=== PATIENT | male | born 1960 | race Caucasian/White ===

== ENCOUNTER 2017-06-19 16:35 | Emergency (ER) | payer BC ==
[2017-06-19 16:41] VITALS: BP 118/70; PULSE 92; TEMP 98; BMI 31.0
--- NOTE | 2017-06-19 17:03 | PDOC ---
History of Present Illness - General Chief Complaint: Pain Stated Complaint: LEG INJURY Time Seen by Provider: 06/19/17 16:47 History Source: Patient Exam Limitations: No Limitations - History of Present Illness Initial Comments: 06/19/17 17:15 Patient is a 57 y/o male who presents to the ED c/o right leg pain. Pt. states he felt a pop this morning when he was stretching to push a small cart up a hill. He felt his leg twist underneath him. He states that immediately after the pop, his calf swelled. States that he has pain when he walks. Denies weakness, tingling, numbness. 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 Denies recent travel. Past History - Travel Traveled outside of the country in the last 30 days: Yes Close contact w/someone who was outside of country & ill: No - Past Medical History Allergies/Adverse Reactions: Allergies Allergy/AdvReac Type Severity Reaction Status Date / Time No Known Allergies Allergy Verified 06/19/17 16:41 Home Medications: Ambulatory Orders NK [No Known Home Medication] 06/19/17 Diabetes: Yes - Surgical History Cholecystectomy: Yes - Psycho/Social/Smoking Cessation Hx Suicidal Ideation: No Smoking History: Never smoked Information on smoking cessation initiated: No Review of Systems - Review of Systems Constitutional: No: Chills, Fever, Malaise, Weakness Musculoskeletal: Yes: Joint Swelling (R knee), Muscle Pain (right lower leg) Integumentary: No: Bruising, Erythema, Rash Neurological: No: Numbness, Paresthesia, Tingling, Weakness All Other Systems: Reviewed and Negative *Physical Exam - Vital Signs Last Vital Signs Temp Pulse Resp BP Pulse Ox 98 F 92 H 18 118/70 98 06/19/17 16:38 06/19/17 16:38 06/19/17 16:38 06/19/17 16:38 06/19/17 16:38 - Physical Exam General Appearance: Yes: Nourished, Appropriately Dressed. No: Apparent Distress Vascular Pulses: Dorsalis-Pedis (R): 2+, Doralis-Pedis (L): 2+ Extremity: positive: Normal Capillary Refill, Normal Range of Motion, Tender ( TTP of the R calf. (+) varus stress.), Swelling (R calf). 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 is a 57 y/o male who presents for R leg pain. His knee exam does show some laxity with a varus draw. However, given the acuity of the swelling of the calf , will r/o DVT as well. 1. X-ray, Venous Duplex 2. Ibuprofen 3. Re-evaluate 06/19/17 17:56 No DVT is identified on ultrasound. 06/19/17 18:39 Wet read of x-ray is negative for fracture. Working differential diagnosis includes knee sprain, ligament tear. Will discharge home at this time with sean wrap and crutches. Will give ortho follow up. Pt understands all discharge instructions and all questions were answered at this time. *DC/Admit/Observation/Transfer Diagnosis at time of Disposition: Knee sprain Qualifiers: Encounter type: initial encounter Involved ligament of knee: unspecified ligament Laterality: right Qualified Code(s): S83.91XA - Sprain of unspecified site of right knee, initial encounter - Discharge Dispostion Disposition: HOME Condition at time of disposition: Improved Admit: No - Referrals Referrals: Sree Forman MD [Primary Care Provider] - Sree Tejada MD [Staff Physician] - - Patient Instructions Printed Discharge Instructions: DI for Knee Sprain Additional Instructions: Your x-rays and ultrasound were negative today. You have a knee sprain. Take ibuprofen 800mg three times a day not to exceed 3,000mg. Elevate and ice the R knee. Follow up with orthopedics within one week. Return to the ED if you have worsening pain, numbness or tingling, or any changes in your symptoms.
[2017-06-19] MEDS ORDERED: IBUPROFEN 600 MG TABLET (FP) PO ONE ×2 (17:12→17:17)
== END 2017-06-19 19:28 | disposition home or self-care (01) ==
LOC: JERFT 16:35
DX: S83.91XA Sprain of unspecified site of right knee, initial encounter (principal); X50.9XXA Other and unspecified overexertion or strenuous movements or postures, initial encounter; Y93.89 Activity, other specified; Y92.89 Other specified places as the place of occurrence of the external cause
CPT/HCPCS: 73562-TC-RT; 73590-TC-RT; 93971-TC; 99281-25

== ENCOUNTER 2021-07-01 11:12 | Emergency (ER) | payer BC, OTHER ==
[2021-07-01 11:36] VITALS: TEMP 98; BMI 32.8
[2021-07-01] MEDS ORDERED: SODIUM CHLORIDE 1,000 ML IV STA (12:44)
[2021-07-01] MEDS ORDERED: KETOROLAC TROMETHAMINE 30 MG/1 ML VIAL IVPUSH ONE (12:44)
[2021-07-01] MEDS ORDERED: ONDANSETRON 4 MG/2 ML VIAL IVPUSH ONE (12:45)
[2021-07-01] MEDS ORDERED: KETOROLAC TROMETHAMINE 30 MG/1 ML VIAL ONE (12:49)
[2021-07-01] MEDS ORDERED: ONDANSETRON 4 MG/2 ML VIAL ONE (12:49)
[2021-07-01 13:12] LABS: BASO % 0.4 % (0-2.0); EOS % 2.6 % (0-4.5); HEMATOCRIT 37.4 % (35.4-49); HEMOGLOBIN 13.2 GM/dL (11.7-16.9); LYMPH % 17.1 % (8-40); MCH 30.3 pg (25.7-33.7); MCHC 35.3 g/dl (32.0-35.9); MEAN CELL VOLUME 85.7 fl (80-96); MEAN PLT VOLUME 7.2 fl (7.5-11.1); MONO % 13.6 % (3.8-10.2); NEUT % 66.3 % (42.8-82.8); PLATELET COUNT 185 10^3/uL (134-434); RBC 4.36 M/mm3 (4.00-5.60); WHITE BLOOD COUNT 6.4 K/mm3 (4.0-10.0)
[2021-07-01 13:28] LABS: CALCIUM 9.7 mg/dL (8.5-10.1)
[2021-07-01 13:29] LABS: ALBUMIN 3.4 g/dl (3.4-5.0); BLOOD UREA NITROGEN 23.4 mg/dL (7-18)
[2021-07-01 13:33] LABS: BILIRUBIN,TOTAL 0.6 mg/dL (0.2-1); TOT PROT 7.5 g/dl (6.4-8.2)
[2021-07-01 13:35] LABS: EPI CELLS 1 /uL (0-25.1); HYALINE CASTS 1 /uL (0-3.1); PH,URINE 5.5 (5.0-8.0); URINE APPEARANCE TURBID; URINE BACTERIA >9,000 /uL (0-1359); URINE BILIRUBIN NEGATIVE (NEGATIVE); URINE COLOR DK YELLOW; URINE GLUCOSE (UA) 3+ (NEGATIVE); URINE KETONE TRACE (NEGATIVE); URINE LEUK ESTERASE 2+ (NEGATIVE); URINE NITRITE NEGATIVE (NEGATIVE); URINE PROTEIN 3+ (NEGATIVE); URINE WBC 5061 /uL (0-25.8)
[2021-07-01 14:20] LABS: URINE RBC 662.7 /uL (0-23.9); YEAST NO SEEN (NEGATIVE)
[2021-07-01] MEDS ORDERED: CEFTRIAXONE 1 GM in DEXTROSE 5%-WATER - 50 ML IVPB ONE (15:28)
[2021-07-01] MEDS ORDERED: CEFTRIAXONE 1 GM/50 ML BAG ONE (15:32)
[2021-07-01 16:26] VITALS: BP 138/72; PULSE 73
== END 2021-07-01 16:26 | disposition home or self-care (01) ==
LOC: JER 11:12
PROC: 3E03329 Introduction of Other Anti-infective into Peripheral Vein, Percutaneous Approach (ICD-10-PCS; principal; 2021-07-01)
PROC: 3E033NZ Introduction of Analgesics, Hypnotics, Sedatives into Peripheral Vein, Percutaneous Approach (ICD-10-PCS; 2021-07-01)
PROC: 3E0337Z Introduction of Electrolytic and Water Balance Substance into Peripheral Vein, Percutaneous Approach (ICD-10-PCS; 2021-07-01)
PROC: 3E0333Z Introduction of Anti-inflammatory into Peripheral Vein, Percutaneous Approach (ICD-10-PCS; 2021-07-01)
DX: N30.01 Acute cystitis with hematuria (principal)
CPT/HCPCS: 36415; 74176-TC; 80053; 81003; 85025; 87086; 87186; 99285-25

== ENCOUNTER 2022-08-27 13:21 | Emergency (ER) | payer OTHER ==
[2022-08-27 14:16] VITALS: BP 141/83; PULSE 74; RESP 18; TEMP 97.8; BMI 33.2
[2022-08-27] MEDS ORDERED: CEPHALEXIN MONOHYDRATE 500 MG CAPSULE (UD) PO ONE (15:43)
[2022-08-27] MEDS ORDERED: DIPHTH,PERTUSS(ACELL),TET 0.5 ML DISP.SYRIN IM ONE ×2 (15:46→15:48)
[2022-08-27] MEDS ORDERED: CEPHALEXIN MONOHYDRATE 500 MG CAPSULE (UD) ONE (15:46)
== END 2022-08-27 16:03 | disposition home or self-care (01) ==
LOC: JERFT 13:21
PROC: 3E0234Z Introduction of Serum, Toxoid and Vaccine into Muscle, Percutaneous Approach (ICD-10-PCS; principal; 2022-08-27)
DX: S61.231A Puncture wound without foreign body of left index finger without damage to nail, initial encounter (principal); W31.2XXA Contact with powered woodworking and forming machines, initial encounter
CPT/HCPCS: 73140-TC-LT-FY; 90715; 99284-25

== ENCOUNTER 2023-01-09 19:45 | Emergency (ER) | payer OTHER ==
[2023-01-09 20:03] VITALS: BMI 33.6
[2023-01-09] MEDS ORDERED: ACETAMINOPHEN 325 MG TABLET (FP) PO ONE (20:13)
[2023-01-09] MEDS ORDERED: ACETAMINOPHEN 325 MG TABLET (FP) ONE (20:33)
[2023-01-09 20:55] LABS: ALBUMIN 3.4 g/dl (3.4-5.0); BILIRUBIN,TOTAL 0.7 mg/dl (0.2-1); CALCIUM 8.7 mg/dl (8.5-10); TOT PROT 7.2 g/dl (6.4-8.2)
[2023-01-09 22:10] LABS: BASO % 0.6 % (0-2.0); EOS % 1.4 % (0-4.5); HEMATOCRIT 35.7 % (35.4-49); HEMOGLOBIN 12.7 GM/dL (11.7-16.9); LYMPH % 11.8 % (8-40); MCH 29.8 pg (25.7-33.7); MCHC 35.6 g/dl (32.0-35.9); MEAN CELL VOLUME 83.6 fl (80-96); MONO % 7.2 % (3.8-10.2); PLATELET COUNT 235 10^3/uL (134-434); RBC 4.26 M/mm3 (4.00-5.60); RDW 13.4 % (11.9-15.9); WHITE BLOOD COUNT 9.4 K/mm3 (4.0-10.0)
[2023-01-10 02:18] VITALS: BP 157/80; PULSE 80; RESP 18; TEMP 98
== END 2023-01-10 02:18 | disposition home or self-care (01) ==
LOC: FER 19:45
DX: N50.811 Right testicular pain (principal); N45.2 Orchitis; N39.0 Urinary tract infection, site not specified; N50.89 Other specified disorders of the male genital organs; Z20.822 Contact with and (suspected) exposure to COVID-19
CPT/HCPCS: 0241U-QW; 36415; 76870-TC; 80053; 81003; 81015; 85025; 87040; 87086; 87186; 99284-25

== ENCOUNTER 2023-01-14 04:12 | Day surgery (SDC) | payer OTHER ==
[2023-01-11 11:14] VITALS: BMI 32.8
[2023-01-14] MEDS ORDERED: BUPIVACAINE HCL/PF 0.25% (2.5MG/ML) 10 ML VIAL ONE (12:58)
[2023-01-14] MEDS ORDERED: PROPOFOL 20 ML ONE (12:58)
[2023-01-14] MEDS ORDERED: DEXAMETHASONE SOD PHOSPHATE 4 MG/1 ML VIAL ONE (12:59)
[2023-01-14] MEDS ORDERED: ONDANSETRON 4 MG/2 ML VIAL ONE (12:59)
[2023-01-14] MEDS ORDERED: LIDOCAINE HCL/PF 2% SDV 5ML VIAL ONE (13:01)
[2023-01-14] MEDS ORDERED: ceFAZolin SODIUM 1 GM VIAL ONE (13:08)
[2023-01-14] MEDS ORDERED: ceFAZolin SODIUM 1 GM VIAL IVPB ONE (13:09)
[2023-01-14] MEDS ORDERED: SEVOFLURANE 250 ML BTL ONE (13:27)
[2023-01-14] MEDS ORDERED: oxyCODONE HCL 5 MG TABLET PO PRN ×2 (14:12)
[2023-01-14] MEDS ORDERED: ONDANSETRON 4 MG/2 ML VIAL IVPUSH PRN (14:12)
[2023-01-14] MEDS ORDERED: PROMETHAZINE HCL 25 MG/1 ML VIAL IVPB PRN (14:12)
[2023-01-14] MEDS ORDERED: ACETAMINOPHEN 1000 MG/100 ML BAG IVPB PRN (14:13)
[2023-01-14] MEDS ORDERED: LACTATED RINGERS SOLUTION 1,000 ML IV SCH (14:15)
[2023-01-14] MEDS ORDERED: ACETAMINOPHEN INJECTION 100 ML IVPB ONE (15:03)
[2023-01-14] MEDS ORDERED: ACETAMINOPHEN 1000 MG/100 ML BAG IVPB ONE (15:06)
[2023-01-14 17:14] VITALS: PULSE 73; RESP 18
[2023-01-14 17:48] VITALS: BP 133/73; TEMP 97.7
== END 2023-01-14 17:55 | disposition home or self-care (01) ==
LOC: JASU-SURG 04:12
PROVIDERS: ATTEND Urology
PROC: 0YU50JZ Supplement Right Inguinal Region with Synthetic Substitute, Open Approach (ICD-10-PCS; principal; 2023-01-14 12:30)
PROC: 0VT90ZZ Resection of Right Testis, Open Approach (ICD-10-PCS; 2023-01-14 12:30)
DX: N45.3 Epididymo-orchitis (principal); N50.89 Other specified disorders of the male genital organs; K40.90 Unilateral inguinal hernia, without obstruction or gangrene, not specified as recurrent
CPT/HCPCS: 82962; 88307-TC; 88309-TC; 94760

== ENCOUNTER 2023-11-21 04:07 | Day surgery (SDC) | payer OTHER ==
[2023-11-19 13:40] VITALS: BMI 33.3
[2023-11-21] MEDS ORDERED: BUPIVACAINE HCL/PF 0.25% (2.5MG/ML) 10 ML VIAL ONE (10:48)
[2023-11-21] MEDS ORDERED: BACITRACIN ZINC 15 GM TUBE TOPICAL OINTMENT ONE (10:48)
[2023-11-21] MEDS ORDERED: SUCCINYLCHOLINE CHLORIDE 200 MG/10 ML SYRINGE ONE (11:21)
[2023-11-21] MEDS ORDERED: MIDAZOLAM HCL 2 MG/2 ML SINGLE DOSE VIAL ONE (11:21)
[2023-11-21] MEDS ORDERED: PROPOFOL 40 ML ONE (11:21)
[2023-11-21] MEDS: ceFAZolin SODIUM 1 GM VIAL IVPB ONE (11:30)
[2023-11-21] MEDS ORDERED: ceFAZolin SODIUM 1 GM VIAL ONE (11:30)
[2023-11-21] MEDS ORDERED: ONDANSETRON 4 MG/2 ML VIAL ONE (11:36)
[2023-11-21] MEDS ORDERED: DEXAMETHASONE SOD PHOSPHATE 4 MG/1 ML VIAL ONE (11:36)
[2023-11-21] MEDS: BUPIVACAINE HCL/PF 0.25% (2.5MG/ML) 10 ML VIAL IJ ONE (11:37)
[2023-11-21] MEDS: BACITRACIN ZINC 15 GM TUBE TOPICAL OINTMENT TP ONE (11:56)
[2023-11-21] MEDS ORDERED: oxyCODONE HCL 5 MG TABLET PO PRN (12:14)
[2023-11-21] MEDS ORDERED: ELECTROLYTE-148 SOLN 1,000 ML IV SCH (12:15)
[2023-11-21] MEDS ORDERED: ONDANSETRON 4 MG/2 ML VIAL IVPUSH PRN (12:48)
[2023-11-21] MEDS ORDERED: LACTATED RINGERS SOLUTION 1,000 ML IV SCH (13:00)
[2023-11-21 13:38] VITALS: RESP 18
[2023-11-21 14:43] VITALS: BP 141/57; PULSE 71; TEMP 97
== END 2023-11-21 14:05 | disposition home or self-care (01) ==
LOC: JASU-SURG 04:07
PROVIDERS: ATTEND Urology
PROC: 0VTTXZZ Resection of Prepuce, External Approach (ICD-10-PCS; principal; 2023-11-21 12:00)
DX: N47.1 Phimosis (principal)
CPT/HCPCS: 36415; 82010; 82962; 88304-TC; 94760